=== PATIENT | male | born 1980 | race Caucasian/White ===

== ENCOUNTER 2016-10-01 15:54 | Emergency (ER) | payer MEDICAID ==
[~2016-10-01] VITALS: Ht 182.9 cm; Wt 111.1 kg
[2016-10-01] MEDS ORDERED: Lidocaine 2% Visc 15ml soln ORAL ONE (16:30)
[2016-10-01 17:00] VITALS: BP 123/82
[2016-10-01 17:06] VITALS: BP 123/82
[2016-10-01] MEDS ORDERED: CORTISPORIN EAR10 ML RIGHT EAR (17:08)
--- NOTE | 2016-10-01 19:35 | Emergency Room Report ---
History of Present Illness General Chief Complaint: Earache Source: Patient Present Illness [facility] the patient is a 36-year-old male presenting for R ear pain which began yesterday. The patient states that he believes an insect is in the ear. He feels a moving sensation. Pain is described as an 8/10 dull ache which occurs when he feels movement. He denies any radiating pain. He denies any other symptoms including hearing loss, nausea, vomiting, fever, chills, rash Allergies: Coded Allergies: No Known Allergies (Verified Allergy, Unknown, 11/02/08) Patient History Past Medical History: see triage record Pertinent Family History: none Reviewed Nursing Documentation: PMH: Agreed, PSxH: Agreed Nursing Documentation-PMH Past Medical History: No Stated History Review of Systems All Other Systems: negative except mentioned in HPI Physical Exam Vital Signs Date Time Temp Pulse Resp B/P Pulse Ox O2 Delivery O2 Flow Rate FiO2 10/01/16 16:04 98.1 105 21 123/82 97 Room Air Sp02 EP Interpretation: reviewed, normal General Appearance: no apparent distress, alert, GCS 15, non-toxic Head: normocephalic, atraumatic Eyes: bilateral eye PERRL, bilateral eye normal inspection ENT: normal pharynx, no angioedema, normal voice, uvula midline, nasal congestion, other - R EAC: there is a small, active, linear insect. TM intact. There are abrasions noted of EAC Neck: full range of motion, supple/symm/no masses Respiratory: chest non-tender, lungs clear, normal breath sounds, speaking full sentences Cardiovascular #1: regular rate, rhythm, no edema Musculoskeletal: back normal, gait/station normal, normal range of motion, non- tender Neurologic: alert, oriented x3, responsive, motor strength/tone normal, sensory intact, speech normal Psychiatric: judgement/insight normal, memory normal, mood/affect normal, no suicidal/homicidal ideation Skin: normal color, no rash, warm/dry, well hydrated Lymphatic: no adenopathy Medical Decision Making PA Attestation Dr. Oliver is my supervising physician. Patient management was discussed with my supervising physician Diagnostic Impression: Primary Impression: Abrasion of ear canal Qualified Codes: S00.411A - Abrasion of right ear, initial encounter Additional Impression: Ear foreign body Qualified Codes: T16.1XXA - Foreign body in right ear, initial encounter ER Course the patient is a 36-year-old male presenting for R ear pain which began yesterday. Differential diagnosis include but not limited to FB, otitis externa, otitis media, mastoiditis, sinusitis, pharyngitis PE: NAD. R EAC: there is a small, active, linear insect. There are abrasions noted of EAC TM intact. Viscous lidocaine was applied flushed with normal saline. The insect was removed during flushing. Fully intact. EAC is now clear. The patient will be discharged home with a prescription for Cortisporin. ER precautions given Last Vital Signs Date Time Temp Pulse Resp B/P Pulse Ox O2 Delivery O2 Flow Rate FiO2 10/01/16 17:06 98.1 98 21 123/82 97 Room Air Status: improved Disposition: HOME, SELF-CARE Condition: Improved Scripts Neomycin/Polymyxin B Sulf/Hc* (CORTISPORIN EAR SOLUTION*) 10 Ml Solution 4 DROP RIGHT EAR QID, #10 ML 0 Refills Prov: CARLOS EDUARDO WALDRON 10/01/16 Referrals: NOT CHOSEN IPA/MD,REFERRING (PCP) Patient Instructions: Ear Foreign Body Additional Instructions: I discussed my findings with the patient. All questions and concerns have been answered. Treatment and medication compliance have been addressed. I advised the patient that they need to follow up with PMD in 3-5 days. Return to ED if symptoms worsen, new symptoms arise, or if needed for any reason. Patient verbalized understanding of discharge instructions. CARLOS EDUARDO WALDRON October 01, 2016 19:35
== END 2016-10-01 17:09 | disposition home or self-care (01) ==
LOC: EMR 16:25
DX: S00.411A Abrasion of right ear, initial encounter (principal); T16.1XXA Foreign body in right ear, initial encounter; X58.XXXA Exposure to other specified factors, initial encounter; Y92.89 Other specified places as the place of occurrence of the external cause
CPT/HCPCS: 99283